=== PATIENT | male | born 1930 | race Caucasian/White ===

== ENCOUNTER 2018-03-28 10:10 | Emergency (ER) | payer OTHER ==
[~2018-03-28] VITALS: Ht 182.9 cm; Wt 68.0 kg
[2018-03-28] MEDS ORDERED: LORAZEPAM2 MG PO (10:40)
[2018-03-28] MEDS ORDERED: SIMVASTATIN20 MG PO (10:41)
[2018-03-28] MEDS ORDERED: METOPROLOL TART25 MG PO (10:41)
[2018-03-28] MEDS ORDERED: DONEPEZIL HCL10 MG PO (10:42)
[2018-03-28] MEDS ORDERED: FINASTERIDE5 MG PO (10:42)
[2018-03-28] MEDS ORDERED: CILOSTAZOL50 MG PO (10:42)
[2018-03-28] MEDS ORDERED: LANTUS SOL100 UNIT/1 (10:43)
[2018-03-28] MEDS ORDERED: CLOPIDOGREL BIS75 MG PO (10:43)
== END 2018-03-28 16:30 | disposition home or self-care (01) ==
LOC: ER 10:10
DX: N39.0 Urinary tract infection, site not specified (principal); B96.29 Other Escherichia coli [E. coli] as the cause of diseases classified elsewhere

== ENCOUNTER 2018-10-10 17:13 | Emergency (ER) | payer OTHER ==
[~2018-10-10] VITALS: Ht 182.9 cm; Wt 70.3 kg
[~2018-10-10 17:13] MED LIST: CILOSTAZOL50 MG PO; CLOPIDOGREL BIS75 MG PO; DONEPEZIL HCL10 MG PO; FINASTERIDE5 MG PO; LANTUS SOL100 UNIT/1; LORAZEPAM2 MG PO; METOPROLOL TART25 MG PO; SIMVASTATIN20 MG PO
[2018-10-10] MEDS ORDERED: PRINIVIL20 MG (17:35)
[2018-10-10] MEDS ORDERED: NORVASC2.5 M1 (17:36)
[2018-10-10] MEDS ORDERED: LASIX40 MG (17:36)
[2018-10-10] MEDS ORDERED: LANTUS SOL100 UNIT/1 (17:37)
== END 2018-10-10 20:23 | disposition home or self-care (01) ==
LOC: ER 17:13
DX: N39.0 Urinary tract infection, site not specified (principal); B96.1 Klebsiella pneumoniae [K. pneumoniae] as the cause of diseases classified elsewhere; R31.0 Gross hematuria

== ENCOUNTER 2018-11-09 13:47 | Emergency (ER) | payer OTHER ==
[~2018-11-09] VITALS: Ht 180.3 cm; Wt 68.0 kg
[~2018-11-09 13:47] MED LIST changes: +LASIX40 MG; +NORVASC2.5 M1; +PRINIVIL20 MG
[2018-11-09] MEDS ORDERED: ARICEPT10 MG (14:08)
[2018-11-09] MEDS ORDERED: ATIVAN2 M1 (14:08)
[2018-11-09] MEDS ORDERED: TAMS0.4C (14:08)
[2018-11-10] MEDS ORDERED: CIPRO500 MG PO (01:54)
== END 2018-11-10 02:05 | disposition home or self-care (01) ==
LOC: ER 13:47
DX: R31.0 Gross hematuria (principal)